=== PATIENT | male | born 1990 | race Two or more races ===

== ENCOUNTER 2019-02-06 14:13 | Emergency (ER) | payer OTHER ==
[~2019-02-06] VITALS: Ht 180.3 cm; Wt 117.8 kg
--- NOTE | 2019-02-06 15:32 | NUR ---
pt ambulatory to ed from home w/ . c/o chest pressure over L chest under pec. intermittent. not there now. c/o heart racing and sob when having chest pressure. last 2-3 hours. c/o anxieyt r/t neighbor dying, cannot sleep well, c/o nausea, no vomiting. st on monitor vss denies abd pain. ermd at bedside for eval. callbell in reach. as
[2019-02-06] MEDS ORDERED: LORazepam 1MG TABLET ONE (15:48)
[2019-02-06] MEDS ORDERED: NAPROXEN 500 MG TABLET ONE (15:49)
--- NOTE | 2019-02-06 15:50 | NUR ---
cxr/labs pending. ativan per apr. NAD. as
[2019-02-06 15:57] LABS: BASOPHILS # (AUTO) 0.02 x10^3/uL (0-0.1); BASOPHILS % (AUTO) 0 % (0-1); EOSINOPHILS # (AUTO) 0.01 x10^3/uL (0-0.4); EOSINOPHILS % (AUTO) 0 % (1-7); LYMPHOCYTES # (AUTO) 1.37 x10^3/uL (1-3.4); LYMPHOCYTES % (AUTO) 11 % (22-44); MD NO; MEAN CORPUSCULAR HEMOGLOBIN 29.9 pg (27.5-34.5); MEAN CORPUSCULAR HGB CONC 33.3 g/dL (33.2-36.2); MEAN CORPUSCULAR VOLUME 89.9 fL (81-97); MEAN PLATELET VOLUME 8.6 fL (7.4-10.4); MONOCYTES # (AUTO) 0.35 x10^3/uL (0.2-0.8); MONOCYTES % (AUTO) 3 % (2-9); NEUTROPHILS # (AUTO) 10.37 x10^3/uL (1.8-6.8); NEUTROPHILS % (AUTO) 86 % (42-75); PLATELET COUNT 283 x10^3/uL (130-400); RED BLOOD COUNT 4.82 x10^6/uL (4.38-5.82); RED CELL DISTRIBUTION WIDTH 13.6 % (9.4-14.8)
[2019-02-06] MEDS ORDERED: LORazepam 1MG TABLET PO ONE (16:00)
[2019-02-06 16:05] LABS: ALBUMIN 4.4 g/dL (3.4-5.0); ANION GAP 6 mmol/L (5-15); CALCIUM 9.1 mg/dL (8.5-10.1); CHLORIDE 109 mmol/L (98-107); CREATININE 0.89 mg/dL (0.7-1.3)
[2019-02-06 16:08] LABS: TROPONIN I < 0.015 ng/mL (0.000-0.045)
[2019-02-06 16:55] VITALS: BP 130/74
== END 2019-02-06 16:57 | disposition home or self-care (01) ==
LOC: ED 16:45
DX: R07.89 Other chest pain (principal); F41.1 Generalized anxiety disorder; R06.00 Dyspnea, unspecified
CPT/HCPCS: 36415; 71045; 80048; 82040; 84484; 85025; 93005; 99284